=== PATIENT | male | born 1960 | race African-American/Black ===

== ENCOUNTER → 2022-01-28 | Outpatient (CLI) | payer OTHER ==
--- NOTE | 2022-01-29 16:11 | RAD ---
Exam performed: X-ray bilateral hands, lumbar spine, cervical spine and shoulder. HISTORY: Neck, back and right shoulder pain. DATE OF SERVICE: 01/28/2022. COMPARISON: None available FINDINGS: AP view of the right shoulder in internal and external rotation and Y view is obtained. Normal alignm ent of the glenohumeral and acromioclavicular joint is maintained. There is a curvilinear ossific str ucture along the humeral head likely calcified tendon. There is also similar linear calcification sup erior to the acromioclavicular joint. The visualized right lung is clear. AP, lateral, open-mouth view and both oblique views of the cervical spine is obtained. Normal sagitta l alignment is preserved. The vertebral body heights are maintained. Postoperative changes of anterio r cervical fusion are seen at C6/7 level. Diffuse anterior osteophytes are seen at C4-5 level. No pre vertebral soft tissue swelling is identified. The visualized lung apices are clear. AP and oblique views of bilateral hand is obtained. Normal alignment is seen. There is no acute fract ure or dislocation. No bony erosions or periosteal reaction seen. There is mild soft tissue swelling. AP and lateral view of the lumbar spine is obtained. 5 nonrib-bearing vertebral bodies identified. Th e vertebral body heights are maintained. There is narrowing of L5-S1 intervertebral disc space with m ild scattered osteophytic spurring. There is no acute compression fracture. 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 Spondylotic changes involving the cervical spine. No acute abnormality seen. Mild soft tissue swelling involving both hands without underlying bony abnormality. 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
== END ==
LOC: RAD 12:52
PROVIDERS: ATTEND Anesthesiology Pain Medicine
DX: Z02.71 Encounter for disability determination (principal); M51.37 Other intervertebral disc degeneration, lumbosacral region; M48.07 Spinal stenosis, lumbosacral region; M25.78 Osteophyte, vertebrae; M19.011 Primary osteoarthritis, right shoulder; M79.89 Other specified soft tissue disorders
CPT/HCPCS: 72050; 72100; 73030; 73120-50